=== PATIENT | male | born 1965 | race Two or more races ===

== ENCOUNTER 2021-07-10 23:59 | Emergency (ER) | payer BC, OTHER ==
[~2021-07-10] VITALS: Ht 162.6 cm; Wt 95.3 kg
[2021-07-11] MEDS ORDERED: KETOROLAC TROMETH 30 MG/ML 1ML VIAL IM ONE (04:15)
[2021-07-11 05:30] VITALS: BP 154/96
[2021-07-11] MEDS ORDERED: IBUP800T27 PO (05:46)
== END 2021-07-11 06:35 | disposition home or self-care (01) ==
LOC: ER 07-11 00:04
DX: S86.911A Strain of unspecified muscle(s) and tendon(s) at lower leg level, right leg, initial encounter (principal); X50.1XXA Overexertion from prolonged static or awkward postures, initial encounter; Y93.89 Activity, other specified; Y92.89 Other specified places as the place of occurrence of the external cause; Y99.8 Other external cause status
CPT/HCPCS: 73564; 96372; 99283; J1885